=== PATIENT | male | born 1945 | race Caucasian/White ===

== ENCOUNTER 2019-05-30 06:38 | Day surgery (SDC) | payer MEDICARE ==
[2019-05-30 07:34] VITALS: BMI 34.7
--- NOTE | 2019-05-30 09:06 | RAD ---
LUMBAR MYELOGRAM: HISTORY: Lumbar radiculopathy. COMPARISON: None. Exposure: 1.2 minutes, 3124.7 mcg/sq m. FINDINGS: Two views lumbar spine farm consultant radiograph demonstrates 5 lumbar type vertebral bodies. Vertebral body h eight is maintained. No fracture. There is a metallic clamp at the level of the L2 and L3 spinous process. Disc prosthesis at L2-L3, L3-L4, and L4-5-S1. Bilateral transpedicular screws at L5 and S1. Perihardware lucency involving the left L5 and bilateral S1 transpedicular screws. Vacuum disc phenomenon at L1-L2. 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 Successful lumbar myelogram. A total of 9 cc of Isovue-M 200 contrast was administered intrathecally. No immediate or postprocedure complication. TECHNIQUE: Consent was obtained perform a lumbar puncture for intrathecal contrast administration. L1-L2 level w as deemed appropriate. Skin was prepped and draped in sterile fashion. 1% lidocaine, buffered, was used for local anesthesia. Under fluoroscopic guidance, a 22-gauge spinal needle was advanced to try to get into the CSF space. Despite multiple attempts, CSF could not be demonstrated to the hub of the needle. Therefore, T12-L1 level was attempted. There was evidence of prompt flow of clear CSF int o the hub of the needle. Via a short tubing catheter, of a total of 9 cc of Isovue-M 200 contrast was administered intrathecally. Patient tolerated the procedure well. No immediate or postprocedure c omplication. IMPRESSION: Successful lumbar myelogram. Total of 9 cc of Isovue-M 200 contrast was administered intrathecally. Transcribed Date/Time: 05/30/2019 9:17 AM
--- NOTE | 2019-05-30 12:14 | CT ---
POSTMYELOGRAM LUMBAR SPINE CT: HISTORY: Lumbar radiculopathy. COMPARISON: None. TECHNIQUE: Post milligrams lumbar spine CT is performed in the axial plane. Sagittal and coronal reformatted kaci ges are submitted for evaluation. FINDINGS: Appropriate attenuation the visualized solid organs. No paraspinal mass, lymphadenopathy or hematoma. There is sclerosis involving the vertebral bodies at the L2-L3, L3-L4, L4-L5 and L5-S1 levels. Disc p rosthesis at L2-L3, L3-L4, L4-L5 and L5-S1. There is a clamp traversing the spinous process at L2 and L3. Bilateral transpedicular screws at L5 and S1. No definite perihardware lucency. Both S1 screw s extend beyond the anterior margin of the associated vertebral body. There are tracks from previous screws at L4. Conus medullaris terminates at the inferior aspect of T12. T12-L1: Broad-based disc bulge results in mild central canal stenosis. Mild bilateral neural foramina l narrowing. L1-L2: Vacuum disc phenomenon. Broad-based disc bulge, ligament flavum thickening and facet hypertrop hy result in moderate to severe canal stenosis. Moderate bilateral neural foraminal narrowing. L2-L3: Disc prosthesis. Broad-based osteophyte ridge, ligament flavum thickening and facet hypertroph y result in moderate to severe central canal stenosis. Moderate severe right and [id number] left foraminal narrowing. L3-L4: There is a disc prosthesis. Right hemilaminotomy defect. No significant central canal stenosis . Moderate to severe right and moderate left neural foraminal narrowing. L4-L5: There is a disc prosthesis. Right hemilaminotomy defect. Broad-based osteophyte ridge along wi th posterior element hypertrophy result in moderate central canal stenosis. Moderate to severe bilateral neural foraminal narrowing. L5-S1: There is a disc prosthesis. There is a left inferior fasciectomy. No evidence of high-grade ce ntral canal stenosis. Moderate right and moderate to severe left neural foraminal narrowing. IMPRESSION: 1. Extensive postsurgical changes of the lumbar spine as described above. 2. Moderate to severe central canal stenosis at L1-L2 and L2-L3 3. Multilevel significant neural foraminal narrowing as described above. Transcribed Date/Time: 05/30/2019 12:21 PM
[2019-05-30] MEDS ORDERED: Iopamidol-M 200 41% 20 ML VIAL ONE (16:34)
== END 2019-05-30 09:30 | disposition home or self-care (01) ==
LOC: RAD 06:38
PROVIDERS: ATTEND Psychiatry & Neurology Neurology
DX: M54.16 Radiculopathy, lumbar region (principal); I10 Essential (primary) hypertension; E29.1 Testicular hypofunction; K21.9 Gastro-esophageal reflux disease without esophagitis; F32.9 Major depressive disorder, single episode, unspecified; F90.9 Attention-deficit hyperactivity disorder, unspecified type
CPT/HCPCS: 62304; 72132; Q9966

== ENCOUNTER 2020-04-14 18:31 | Emergency (ER) | payer MEDICARE, OTHER | END 2020-04-14 18:56 | disposition home or self-care (01) | LOC: ERS 18:31 | DX: Z20.828 Contact with and (suspected) exposure to other viral communicable diseases (principal); K21.9 Gastro-esophageal reflux disease without esophagitis; I10 Essential (primary) hypertension; F32.9 Major depressive disorder, single episode, unspecified; F90.9 Attention-deficit hyperactivity disorder, unspecified type | CPT/HCPCS: 87635; 99283; U0003 ==

== ENCOUNTER 2021-02-25 14:05 | Outpatient (CLI) | payer MEDICARE ==
[2021-02-26 01:31] LABS: SARS-CoV-2 PCR by NAA Not Detected (NotDetected)
== END 2021-02-25 14:06 | disposition home or self-care (01) ==
LOC: LABBT 14:05
PROVIDERS: ATTEND Specialist
DX: Z01.812 Encounter for preprocedural laboratory examination (principal); M96.1 Postlaminectomy syndrome, not elsewhere classified; G89.4 Chronic pain syndrome; Z20.822 Contact with and (suspected) exposure to COVID-19
CPT/HCPCS: U0003; U0005; 87635

== ENCOUNTER 2021-02-28 08:35 | Day surgery (SDC) | payer MEDICARE ==
[2021-02-27 11:03] VITALS: BMI 34.0
[2021-02-28] MEDS ORDERED: EPINEPHrine 1 MG/ML AMP ONE (09:14)
[2021-02-28] MEDS ORDERED: Bupivacaine PF 0.5% 30 ML VIAL ONE (09:14)
[2021-02-28] MEDS ORDERED: CEFAZOLIN 1 GM VIAL ONE (09:32)
[2021-02-28] MEDS ORDERED: Sodium Chloride 0.9% 100 ML ONE (09:32)
[2021-02-28] MEDS ORDERED: Fentanyl 100 MCG/2 ML VIAL ONE (10:09)
[2021-02-28] MEDS ORDERED: Midazolam HCl 2 mg/2 ml Vial ONE (10:09)
[2021-02-28] MEDS ORDERED: Lidocaine 1% PF 5 ML VIAL ONE (10:27)
[2021-02-28] MEDS ORDERED: Ondansetron PF 4 MG/2 ML Vial ONE (10:27)
[2021-02-28] MEDS ORDERED: PROPOFOL 200 MG/20 ML VIAL ONE (10:27)
== END 2021-02-28 13:30 | disposition home or self-care (01) ==
LOC: SDC 08:35
PROVIDERS: ATTEND Specialist
PROC: 0JH70CZ Insertion of Single Array Rechargeable Stimulator Generator into Back Subcutaneous Tissue and Fascia, Open Approach (ICD-10-PCS; principal; 2021-02-28)
PROC: 00HU3MZ Insertion of Neurostimulator Lead into Spinal Canal, Percutaneous Approach (ICD-10-PCS; 2021-02-28)
DX: M96.1 Postlaminectomy syndrome, not elsewhere classified (principal); G89.4 Chronic pain syndrome; M54.16 Radiculopathy, lumbar region; G47.33 Obstructive sleep apnea (adult) (pediatric); I10 Essential (primary) hypertension; K21.9 Gastro-esophageal reflux disease without esophagitis; N40.0 Benign prostatic hyperplasia without lower urinary tract symptoms; G25.81 Restless legs syndrome; M17.12 Unilateral primary osteoarthritis, left knee; Z79.82 Long term (current) use of aspirin; Z79.899 Other long term (current) drug therapy
CPT/HCPCS: 63650 ×2; 63685; 72020; 76000; C1778; C1787; L8687; L8689; J0171; J0690; J2250; J2405; J2704; J3010; J3490; S0020

== ENCOUNTER 2023-06-05 17:53 | Emergency (ER) | payer MEDICARE, OTHER ==
[2023-06-05 18:28] LABS: #Basophils 0.1 thou/uL (0.0-0.2); #Eosinphils 0.1 thou/uL (0.0-0.7); #Monocytes 1.4 thou/uL (0.11-0.59); #Neutrophils 11.2 thou/uL (1.40-6.50); %Basophils 0.5 % (0.0-1.0); %Lymphocytes 11.8 % (21.0-51.0); %Monocytes 9.6 % (0.0-10.0); %Neutrophils 76.6 % (42.0-75.0); Hematocrit 45.8 % (42.0-52.0); Hemoglobin 14.4 g/dL (14.0-18.0); Mean Corpuscular HGB CONC 31.4 g/dL (32.0-36.0); Mean Corpuscular Hemoglobin 22.7 pg (27.0-31.0); Mean Corpuscular Volume 72.4 fl (78.0-98.0); Mean Platelet Volume 10.5 fL (7.4-10.4); Platelet Count 181 10x3/uL (130-400); RBC Distribution Width 19.9 % (11.5-14.5); Red Blood Cell (RBC) Count 6.33 mill/uL (4.70-6.10); White Blood Cell (WBC) Count 14.6 10x3/uL (4.8-10.8)
[2023-06-05 18:50] LABS: ALT (SGPT) 40 U/L (8-55); AST (SGOT) 34 U/L (5-34); Albumin 4.3 g/dL (3.4-4.8); Alkaline Phosphatase 111 U/L (40-110); Anion Gap 16 mmol/L (10-20); BUN (Urea Nitrogen) 19 mg/dL (8.4-25.7); Bilirubin, Total 0.3 mg/dL (0.2-1.2); CK (CPK) 372 U/L (30-200); Calc. Creatinine Clearance 0 mL/min (70-130); Carbon Dioxide 22 mmol/L (23-31); Chloride 102 mmol/L (98-107); Estimated GFR 58; Globulin 3.5 g/dL (2.4-3.5); Glucose 213 mg/dL (83-110); Potassium 3.9 mmol/L (3.5-5.1); Protein, Total 7.8 g/dL (5.8-8.1); Sodium 136 mmol/L (136-145)
[2023-06-05 18:54] LABS: Troponin I 0.011 ng/mL (< 0.028)
[2023-06-05 18:58] LABS: Anisocytosis SLIGHT = 6-15 cells HPF (0-5); Burr Cells SLIGHT = 2-5 cells HPF (0-1); CellaVision Operator ID LAB.MJL; Hypochromia SLIGHT = 6-15 cells HPF (0-5); Microcytosis SLIGHT = 6-15 cells HPF (0-5); Ovalocytes SLIGHT = 2-5 cells HPF (0-1); Platelet Adequacy Comment Platelets Normal; Polychromasia MODERATE = 3-4 cells HPF (0-2); Tear Drops SLIGHT = 2-5 cells HPF (0-1)
== END 2023-06-05 20:10 | disposition home or self-care (01) ==
LOC: ERS 17:53
DX: D72.829 Elevated white blood cell count, unspecified (principal); E86.0 Dehydration; E11.9 Type 2 diabetes mellitus without complications; E78.5 Hyperlipidemia, unspecified; K21.9 Gastro-esophageal reflux disease without esophagitis; Z79.899 Other long term (current) drug therapy; Z79.84 Long term (current) use of oral hypoglycemic drugs
CPT/HCPCS: 71045; 80053; 82550; 84484; 85025; 93005